=== PATIENT | female | born 1985 | race African-American/Black ===

== ENCOUNTER 2021-05-18 01:50 | Inpatient (IN) | payer OTHER ==
[2021-05-18 02:54] VITALS: BMI 28.7
[2021-05-18] MEDS: DEXTROSE 5%-LACTATED RINGERS 1,000 ML IV SCH ×2 (03:00→10:49)
[2021-05-18 04:32] LABS: BASO % 0.3 % (0-2.0); EOS % 0.5 % (0-4.5); HEMATOCRIT 32.7 % (32.4-45.2); LYMPH % 29.2 % (8-40); MCH 28.1 pg (25.7-33.7); MCHC 33.7 g/dl (32.0-36.0); MEAN CELL VOLUME 83.4 fl (80-96); MEAN PLT VOLUME 10.5 fl (7.5-11.1); MONO % 9.1 % (3.8-10.2); NEUT % 60.9 % (42.8-82.8); PLATELET COUNT 127 10^3/uL (134-434); RBC 3.92 M/mm3 (3.60-5.2); RDW 13.8 % (11.6-15.6); WHITE BLOOD COUNT 4.7 K/mm3 (4.0-10.0)
[2021-05-18 04:49] LABS: BLOOD UREA NITROGEN 8.8 mg/dL (7-18); CALCIUM 8.1 mg/dL (8.5-10.1)
[2021-05-18 04:51] LABS: INR 0.87 (0.83-1.09); PROTHROMBIN TIME (PATIENT) 10.7 SEC (9.7-13.0)
[2021-05-18 04:52] LABS: CREATININE 0.5 mg/dL (0.55-1.3)
[2021-05-18 04:54] LABS: ACTIVATED PTT 26.1 SECONDS (25.2-36.5)
[2021-05-18] MEDS ORDERED: OXYTOCIN 30 UNITS in 0.9% NS 30 UNIT/500 ML INFUS.BAG IVPB SCH (13:45)
[2021-05-18] MEDS ORDERED: OXYTOCIN 30 UNITS in 0.9% NS 30 UNIT/500 ML INFUS.BAG IVPB ONE (13:47)
[2021-05-18] MEDS ORDERED: ELECTROLYTE-148 SOLN 500 ML IV ONE (16:00)
[2021-05-18] MEDS ORDERED: FENTANYL/BUPIVACAINE/NS/PF - PCEA - 50 ML DISP.SYRIN EP ONE (16:16)
[2021-05-18] MEDS ORDERED: BUPIVACAINE HCL/PF 0.25% (2.5MG/ML) 10 ML VIAL ONE ×2 (16:51→18:24)
[2021-05-18] MEDS ORDERED: ELECTROLYTE-148 SOLN 1,000 ML IV SCH (17:00)
[2021-05-18] MEDS: FENTANYL/BUPIVACAINE/NS/PF - PCEA - 50 ML DISP.SYRIN EP SCH (17:25)
[2021-05-18] MEDS ORDERED: NALOXONE HCL 0.4 MG/ML VIAL IVPUSH PRN (17:56)
[2021-05-18] MEDS ORDERED: LIDOCAINE HCL 1% PRESERVATIVE FREE - 30ML VIAL ONE (18:52)
[2021-05-18] MEDS ORDERED: OXYTOCIN 20 UNITS in 0.9% NS 20 UNIT/1,000 ML INFUS.BAG IV ONE (18:52)
[2021-05-18] MEDS ORDERED: ACETAMINOPHEN 325 MG TABLET (FP) PO PRN (19:56)
[2021-05-18] MEDS ORDERED: BENZOCAINE 20% 57 GM BOTTLE TP PRN (19:56)
[2021-05-18] MEDS ORDERED: BENZOCAINE 28 GM HEMORRHOIDAL OINTMENT TP PRN (19:56)
[2021-05-18] MEDS ORDERED: WITCH HAZEL 50% (TUCKS) 40 PAD/JAR PAD TP PRN (19:56)
[2021-05-18] MEDS ORDERED: OXYTOCIN 20 UNITS in 0.9% NS 20 UNIT/1,000 ML INFUS.BAG IV SCH (20:00)
[2021-05-18 20:16] LABS: CORD BASE EXCESS -4.5 mmol/L (0-2); CORD HCO3 22.1 mmHg (20-29); CORD PCO2 46.4 mmHg (30-78); CORD pH 7.296 (7.14-7.44)
[2021-05-18 20:23] LABS: CORD BASE EXCESS -6.8 mmol/L (0-2); CORD HCO3 21.6 mmHg (20-29); CORD PCO2 54.4 mmHg (30-78); CORD pH 7.217 (7.14-7.44)
[2021-05-18] MEDS ORDERED: ACETAMINOPHEN 325 MG TABLET (FP) ONE (20:52)
[2021-05-18] MEDS ORDERED: IBUPROFEN 600 MG TABLET (FP) PO ONE (20:52)
[2021-05-18] MEDS: IBUPROFEN 600 MG TABLET (FP) PO PRN (20:58)
[2021-05-18] MEDS ORDERED: PCA PUMP NR ONE (21:21)
[2021-05-19] MEDS: IBUPROFEN 600 MG TABLET (FP) PO PRN ×4 (01:05→21:30)
[2021-05-19 08:29] LABS: BASO % 0.3 % (0-2.0); EOS % 0.1 % (0-4.5); HEMATOCRIT 33.5 % (32.4-45.2); HEMOGLOBIN 11.3 GM/dL (10.7-15.3); LYMPH % 16.5 % (8-40); MCH 28.8 pg (25.7-33.7); MCHC 33.9 g/dl (32.0-36.0); MEAN CELL VOLUME 85.2 fl (80-96); MONO % 7.1 % (3.8-10.2); PLATELET COUNT 121 10^3/uL (134-434); RBC 3.93 M/mm3 (3.60-5.2); WHITE BLOOD COUNT 7.2 K/mm3 (4.0-10.0)
[2021-05-19] MEDS ORDERED: SENNOSIDES/DOCUSATE COMBO (SENNA PLUS) TABLET (UD) PO PRN (22:00)
[2021-05-19] MEDS: FENTANYL/BUPIVACAINE/NS/PF - PCEA - 50 ML DISP.SYRIN EP SCH (23:28)
[2021-05-20 10:52] VITALS: BP 125/84; PULSE 90; TEMP 97.9
== END 2021-05-20 12:55 | disposition home or self-care (01) | DRG 807 ==
LOC: JLDR 01:50 → J3W 21:25
PROVIDERS: ADMIT Obstetrics & Gynecology Maternal & Fetal Medicine; ATTEND Obstetrics & Gynecology Maternal & Fetal Medicine
PROC: 10E0XZZ Delivery of Products of Conception, External Approach (ICD-10-PCS; principal; 2021-05-18)
DX: O42.92 Full-term premature rupture of membranes, unspecified as to length of time between rupture and onset of labor (principal); Z37.0 Single live birth; O99.284 Endocrine, nutritional and metabolic diseases complicating childbirth; E03.9 Hypothyroidism, unspecified; O24.410 Gestational diabetes mellitus in pregnancy, diet controlled; O70.0 First degree perineal laceration during delivery; Z3A.39 39 weeks gestation of pregnancy
CPT/HCPCS: 36415; 36600; 59409; 80048; 82803; 82962; 85025; 85610; 85730; 86762; 86780; 86850; 86900; 86901; 87340; C9803; U0003; U0005